=== PATIENT | female | born 1935 | race Two or more races ===

== ENCOUNTER 2018-07-27 14:13 | Emergency (ER) | payer MEDICARE ==
[~2018-07-27] VITALS: Ht 162.6 cm; Wt 43.1 kg
[2018-07-27 14:21] VITALS: BP_SYST 93
[2018-07-27 15:50] LABS: ANION GAP 7 (5-15); CALCIUM 8.2 mg/dL (8.4-11.0); CHLORIDE 98 mmol/L (98-107); CREATININE 1.73 mg/dL (0.55-1.30); GLUCOSE 268 mg/dL (70-99); SODIUM SERUM 132 mmol/L (136-145); UREA NITROGEN, BLOOD 82 mg/dL (8-21)
[2018-07-27 15:55] LABS: ALANINE AMINOTRANSFERASE 71 U/L (12-78); ALBUMIN 2.1 g/dL (3.4-4.8); ASPARTATE AMINOTRANSFERASE 33 U/L (10-37); TOTAL BILIRUBIN 0.2 mg/dL (0.0-1.0)
[2018-07-27 15:57] LABS: RED BLOOD CELL COUNT(AUTO) 4.42 MIL/uL (4.2-6.2); WHITE BLOOD COUNT (AUTO) 18.4 K/uL (4.8-10.8)
[2018-07-27 15:59] LABS: HEMATOCRIT 21.3 % (36-48); MEAN CORPUSCULAR HEMOGLOBIN 29 pg (27-31); MEAN CORPUSCULAR HGB CONC 33 % (32-36); MEAN CORPUSCULAR VOLUME 88 fL (79.0-98.0); RED CELL DISTRIBUTION WIDTH 13.3 % (9.0-15.0)
[2018-07-27 16:00] LABS: PLATELET COUNT (AUTO) 460 K/uL (130-430)
[2018-07-27 16:14] LABS: BILIRUBIN,URINE NEGATIVE (NEGATIVE); BLOOD, URINE NEGATIVE (NEGATIVE); CLARITY/URINE SL CLOUDY (CLEAR); COLOR,URINE YELLOW (YELLOW); GLUCOSE,URINE NEGATIVE (NEGATIVE); KETONES,URINE NEGATIVE (NEGATIVE); LEUKOCYTE ESTERASE ,URINE 1+ (NEGATIVE); NITRITE, URINE NEGATIVE (NEGATIVE); PROTEIN URINE TRACE (NEGATIVE); UROBILINOGEN,URINE 0.2 (0.2-1.0)
[2018-07-27 16:21] LABS: RBC,URINE 0-3 /HPF (0-3)
[2018-07-27 16:22] LABS: BAND % (MANUAL) 0 % (0-6); BASOPHILS % (MANUAL) 0 % (0-2); EOSINOPHILS % (MANUAL) 0 % (0-7); LYMPHOCYTES % (MANUAL) 4 % (20-46); MONOCYTES % (MANUAL) 6 % (0-11)
[2018-07-27 16:22] LABS: BACTERIA,URINE MODERATE /HPF (None Seen); MUCUS,URINE None Seen /LPF (None Seen)
[2018-07-27 16:23] LABS: FINE GRANULAR CASTS,URINE 0-10 /LPF (None Seen); URINE AMORPHOUS URATE 1+ /HPF (None Seen)
[2018-07-27] MEDS ORDERED: NACL 0.9% 1,000 ML IV ONE (17:45)
[2018-07-27] MEDS ORDERED: PANTOPRAZOLE SODIUM 40 MG/VIAL (PROTONIX) IVP ONE (18:15)
[2018-07-27 21:42] VITALS: BP_SYST 111
== END 2018-07-27 21:42 | disposition short-term general hospital (02) ==
LOC: SED 14:13
DX: I95.9 Hypotension, unspecified (principal); D64.9 Anemia, unspecified; R63.0 Anorexia
CPT/HCPCS: 36415; 71045; 80053; 81000; 82272; 83605; 84484; 85007; 85027; 87040; 87086; 93005; 96365; 96366; 96375; 99285; C9113; J1956; J7030